=== PATIENT | female | born 1985 | race Caucasian/White ===

== ENCOUNTER → 2016-08-08 | Outpatient (CLI) | payer BC ==
[~2016-08-08] MED LIST: ETONMIS VAGRING; FEXO1TAB49 PO; IBUP-1050 PO
== END | disposition home or self-care (01) ==
LOC: C.PAPS 15:16
PROVIDERS: ATTEND Physician Assistant
DX: Z01.419 Encounter for gynecological examination (general) (routine) without abnormal findings (principal)

== ENCOUNTER → 2016-08-17 | Outpatient (CLI) | payer BC ==
--- NOTE | 2016-08-17 13:06 | MAMMOGRAPHY REPORT ---
UNILATERAL RIGHT DIGITAL DIAGNOSTIC MAMMOGRAM TOMOSYNTHESIS WITH CAD AND TARGETED RIGHT ULTRASOUND: 08/17/2016 CLINICAL HISTORY: The patient reports a new palpable right breast lump for approximately 3 months. She has not noticed any change in size of the lump over that time period. She has a history of a pa lpable left axillary lump, which was biopsied April 2015 and yielded a benign fibroadenoma. TECHNIQUE: Breast tomosynthesis in addition to standard 2D mammography was performed. Current study was also evaluated with a Computer Aided Detection (CAD) system. Right CC and MLO 2-D and tomosynt hesis images were obtained. COMPARISON: Prior left breast ultrasounds dated 04/08/2015 and 04/15/2015. BREAST COMPOSITION: The tissue of the right breast is extremely dense, which lowers the sensitivity of mammography. FINDINGS: A triangle marker cooney the site of the palpable lump in the right lower outer quadrant. No suspicious masses, calcifications, or areas of architectural distortion are noted in the right b reast mammographically. Targeted ultrasound was performed of the area of the palpable lump pointed out by the patient, in th e right breast at approximately 7:00, 5 cm from the nipple. At the site of the palpable lump there is an oval circumscribed parallel hypoechoic solid mass which measures 1.4 x 0.5 x 1.6 cm. This britt ears similar to the previously biopsied left axillary mass which yielded a benign fibroadenoma. The mass is probably benign and likely also represents a fibroadenoma. Recommend follow-up ultrasound of the right breast in 6 months to confirm stability. IMPRESSION: ACR-BI-RADS CATEGORY 3: PROBABLY BENIGN, TARGETED ULTRASOUND ACR-BI-RADS CATEGORY 3: VA OBABLY BENIGN Circumscribed hypoechoic 1.6 cm mass in the right breast at 7:00, at the site of the palpable lump p ointed out by the patient. The mass appears similar to the previously biopsied left axillary mass w hich yielded a benign fibroadenoma. The mass is probably benign and likely also represents a fibroa denoma. Recommend follow-up ultrasound of the right breast in 6 months to confirm stability. Also recommend clinical follow-up of the palpable lump, and if the lump clinically increases in size befo re the followup, the patient should return sooner for repeat ultrasound. The patient has been verbally notified of the results. Approximately 10% of breast cancers are not detected with mammography. A negative mammographic repor t should not delay biopsy if a clinically suggestive mass is present. Celia Asher M.D. ah/:08/17/2016 08:30:18 Layout Worker: Haily MCFADDEN(R)(Gina), letter sent: Follow Up Recommended 3 BI-RADS Code: ACR-BI-RADS Category 3: Probably Benign Ultrasound BI-RADS: ACR-BI-RADS Category 3: P robably Benign
== END | disposition home or self-care (01) ==
LOC: C.MAMM 08:01
PROVIDERS: ATTEND Physician Assistant
DX: N63 Unspecified lump in breast (principal)

== ENCOUNTER → 2016-09-06 | Outpatient (CLI) | payer BC | END | disposition home or self-care (01) | LOC: C.PATHSPEC 16:25 | PROVIDERS: ATTEND Obstetrics & Gynecology | DX: A63.0 Anogenital (venereal) warts (principal); R87.612 Low grade squamous intraepithelial lesion on cytologic smear of cervix (LGSIL); N85.8 Other specified noninflammatory disorders of uterus ==

== ENCOUNTER → 2016-10-26 | Outpatient (CLI) | payer BC ==
--- NOTE | 2016-10-26 16:00 | MAMMOGRAPHY REPORT ---
UNILATERAL LEFT DIGITAL DIAGNOSTIC MAMMOGRAM TOMOSYNTHESIS WITH CAD AND TARGETED LEFT ULTRASOUND: 10/01 CLINICAL HISTORY: The patient reports that the palpable left axillary lump which has been previously biopsied has been increasingly painful over the last 2 months, especially when a shirt or vest rubs a gainst the mass. She does not feel that the mass has changed in size clinically. TECHNIQUE: Breast tomosynthesis in addition to standard 2D mammography was performed. Current study was also evaluated with a Computer Aided Detection (CAD) system. Left CC and MLO 2-D and tomosynthes is images were obtained. COMPARISON: Comparison is made to exams dated: 04/15/2015 ultrasound and 04/08/2015 ultrasound - [facility]. BREAST COMPOSITION: The tissue of the left breast is extremely dense, which lowers the sensitivity o f mammography. FINDINGS: A triangle marker cooney the site of the painful palpable lump in the left axillary region. At the site of the palpable lump there is an oval circumscribed 14 mm mass with an associated biops y marker clip. This was previously biopsied and yielded a benign fibroadenoma. The remainder of the left breast demonstrates no suspicious masses, calcifications, or areas of architectural distortion. Targeted ultrasound was performed of the area of the painful palpable lump pointed out by the patient , in the left axillary region. At the site of the palpable lump there is a hypoechoic circumscribed mass which measures 11 x 7 x 10 mm in the radial and antiradial planes, with maximum dimension measur ing 1.6 cm. The mass is not significantly changed compared to the April 2015 exam when accounting for differences in measurement technique. This corresponds with the mammographic mass and was previou sly biopsied and yielded a benign fibroadenoma. IMPRESSION: ACR BI-RADS CATEGORY 2: BENIGN, TARGETED ULTRASOUND ACR BI-RADS CATEGORY 2: BENIGN Stable size and appearance of the 1.6 cm hypoechoic mass in the left axilla, which was previously bio psied and yielded a benign fibroadenoma. Given that the mass is increasingly painful, consider surgi cary consultation for possible excision. There is no mammographic or targeted sonographic evidence of malignancy. The patient has been verball y notified of the results. Note that the patient is also due for short interval follow-up of a right breast mass January 2017. Approximately 10% of breast cancers are not detected with mammography. A negative mammographic report should not delay biopsy if a clinically suggestive mass is present. Celia Asher M.D. ah/:10/26/2016 13:38:46 Slumber Room Attendant: Mary [place])(Gina), [facility] letter sent: Normal 1/2 BI-RADS Code: ACR BI-RADS Category 2: Benign Ultrasound BI-RADS: ACR BI-RADS Category 2: Benign
== END | disposition home or self-care (01) ==
LOC: C.MAMM 12:56
PROVIDERS: ATTEND Physician Assistant
DX: N63 Unspecified lump in breast (principal)

== ENCOUNTER → 2016-11-14 | Day surgery (SDC) | payer BC ==
[2016-11-09 16:23] VITALS: Ht 167.6 cm; Wt 60.5 kg
[~2016-11-14] VITALS: Ht 167.6 cm; Wt 60.5 kg
[~2016-11-14] MED LIST changes: +ATROPINE SULFATE 0.1 MG/ML 5ML SYR IV PRN; +BUPIVACAINE 0.5 % 5 MG/1 ML MPF 30ML VIAL ONE; +DEXAMETHASONE SOD INJ 4 MG/ML VIAL ONE; +EpHEDrine SULFATE INJ 50 MG/ML AMP IV PRN; +FENTANYL CITRATE INJ 50 MCG/1 ML 2 ML VIAL IV PRN; +FENTANYL CITRATE INJ 50 MCG/1 ML 2 ML VIAL ONE; +FLUMAZENIL 0.1 MG/1 ML 10 ML VIAL IV PRN; +HYDROmorphone INJ 2 MG/ML SYR/VIAL IV PRN; +HydrALAZINE HCL 20 MG/ML VIAL IV. STA; +HydrALAZINE HCL 20 MG/ML VIAL ONE; +KETOROLAC TROMETHAMINE 30 MG/ML VIAL ONE; +LABETALOL HCL IV 5 MG/ML 20ML IV PRN; +LACTATED RINGER'S 1000ML 1,000 ML IV SCH; +LIDOCAINE HCL 2% 2 ML VIAL (20MG/ML) ONE; +MEPERIDINE HCL 25 MG/ML CARP IV PRN; +MIDAZOLAM HCL 1 MG/ML 2ML VIAL ONE; +NALOXONE HCL 0.4 MG/1 ML VIAL/CARP IV PRN; +ONDANSETRON INJ 2 MG/ML 2 ML VIAL IV PRN; +ONDANSETRON INJ 2 MG/ML 2 ML VIAL ONE; +PHENYLEPHRINE 100MCG/ML 5ML SYR IV PRN; +PROPOFOL IV EMULSION 10 MG/ML 20 ML VIAL IV ONE; +SODIUM CHLORIDE 0.9% 1000ML 1,000 ML IV SCH
--- NOTE | 2016-11-14 07:03 | History & Physical Bridge - SC ---
H&P Re-Evaluation Bridge Note: I have examined the patient, reviewed the History & Physical and in the interval since the performance of the History & Physical I have noted the following changes of clinical significance: The patient has a palpable mass in the right breast that has been imaged and is a likely fibroadenoma, but would like it to be excised as well. Plan for left breast excisional biopsy and possible right breast excisional biopsy. No other changes noted
--- NOTE | 2016-11-14 07:57 | [facility] Post Operative Brief Note ---
Immediate Operative Summary Operative Date Nov 14, 2016. Pre-Operative Diagnosis Breast lump or mass Post-Operative Diagnosis same Procedure(s) Performed Left Breast Excisional Biopsy; Right Breast Excisional Biopsy Surgeon Dr Hernández Landscape Contractor Surgeon(s) Mary Shane PA-C Estimated Blood Loss 3ML Findings 2cm right breast mass excised, 1.5cm left breast mass excised, good hemostasis, likely fibroadenomas Specimens A)Right Breast Mass B)Left Breast Mass Drains None Anesthesia GETA Complication(s) None Disposition Recovery Room / PACU
--- NOTE | 2016-11-14 08:00 | Discharge Instructions-SurgCtr ---
Discharge Instructions Date of Service Nov 14, 2016. Visit Reason for Visit: Breast Lump Or Mass Discharge Discharge Diagnosis / Problem: Breast Lump Or Mass Discharge Goals Goal(s): Decrease discomfort, Improve function Activity Recommendations Activity Limitations: as noted below Lifting Limitations: no more than 10 pounds Exercise/Sports Limitations: until after follow-up appointment May Resume Sexual Activity: after follow-up appointment Shower/Bathe: tomorrow Anesthesia . Post Anesthesia Instructions: If you have had General Anesthesia or IV Sedation: * Do not drive today. * Resume driving when surgeon permits. * Do not make important decisions or sign legal documents today. * Call surgeon for: 1. Temperature elevations greater than 101 degrees F. 2. Uncontrollable pain. 3. Excessive bleeding. 4. Persistent nausea and vomiting. 5. Medication intolerance (nausea, vomiting or rash). * For nausea and vomiting use only clear liquids such as: tea, soda, bouillon until nausea subsides, then gradually increase diet as tolerated. * If you have any concerns or questions, call your surgeon's office. If physician is unavailable and it is an emergency, call 911 or go to the nearest emergency room. . Instructions / Follow-Up Instructions / Follow-Up Please follow-up with Dr. Hernández in the office in 1-2 weeks. Please call the office at [phone] to make an appointment if you do not have one already. Please call the office at [phone] with any questions or concerns. Diet Recommendations Home Diet: no limitations, resume previous diet Pending Studies Studies pending at discharge: yes List of pending studies: Pathology report. Medical Emergencies . Who to Call and When: Medical Emergencies: If at any time you feel your situation is an emergency, please call 911 immediately. . Non-Emergent Contact Non-Emergency issues call your: Primary Care Provider, Surgeon Call Non-Emergent contact if: temperature is above 101.5, your pain is not controlled, wound has increased drainage, wound has increased redness . . "Provider Documentation" section prepared by Julia Sood. . [place] Drug Monitoring Program Search Results: patient reviewed within database, no issues identified
--- NOTE | 2016-11-14 08:06 | [facility] Operative Report ---
Operative Report Operative Date Nov 14, 2016. Pre-Operative Diagnosis Breast lump or mass Post-Operative Diagnosis same Procedure(s) Performed Left Breast Excisional Biopsy; Right Breast Excisional Biopsy Surgeon Dr Hernández Pipeline Superintendent Division Surgeon(s) Mary Shane PA-C Estimated Blood Loss 3ML Findings right breast 2.0 cm excised, left breast mass 1.5cm excised, good hemostasis, likely fibroadenomas. Specimens A)Right Breast Mass B)Left Breast Mass Drains None Anesthesia GETA Complication(s) None Disposition Recovery Room / PACU Indications 31 year old female with palpable bilateral breast masses. Left breast mass with prior stereotactic biopsy, pathology consistent with fibroadenoma. Right breast mass, BIRADS 3, likely fibroadenoma. Both cause discomfort when wearing body armor, plan for left breast excisional biopsy, possible right breast excisional biopsy. The risks and benefits of the procedure were discussed, all questions answered, and the patient agreed to proceed with surgery as planned. Description of Procedure The patient was appropriately identified, consented, and taken to the operating room where she was placed in the supine position. General anesthesia was induced, SCD's were placed, and the patient's bilateral breasts were prepped and draped in the standard sterile fashion. A surgical timeout was performed and all parties were in agreement that this was the correct patient and procedure to be performed and we continued as planned. Local anesthetic was injected at incision sites. A transverse incision was made in the right breast overlying the mass with a knife and deepened through the subcutaneous tissue with electrocautery. The right breast mass was identified, circumferentially dissected, excised, and passed off the table as specimen. The incision was irrigated and hemostasis achieved. The skin was closed with interrupted 3-0 vicryl deep dermal suture followed by 4-0 monocryl subcuticular suture. Dermabond was placed over the incision. A transverse incision was made in the left breast overlying the mass in the axilla with a knife and deepened through the subcutaneous tissue with electrocautery. The left breast mass was identified, circumferentially dissected, excised, and passed off the table as specimen. The incision was irrigated and hemostasis achieved. The skin was closed with interrupted 3-0 vicryl deep dermal suture followed by 4-0 monocryl subcuticular suture. Dermabond was placed over the incision. Anesthesia was ceased and the patient was extubated in the operating room. All sponge, needle and instrument counts were correct. The patient was transferred to the PACU where she recovered without apparent incident. I attest to the content of the Intraoperative Record and any orders documented therein. Any exceptions are noted below.
[2016-11-14 09:01] VITALS: TEMP 36.6
--- NOTE | 2016-11-14 09:19 | Anesthesia Progress Nt - [facility] ---
Anesthesia Post Op Note Date & Time Nov 14, 2016 at 09:19 Vital Signs Pain Intensity: 0 Vital Signs Past 12 Hours Date Time Temp Pulse Resp B/P (MAP) Pulse Ox O2 Delivery O2 Flow Rate FiO2 11/14/16 09:01 36.6 75 16 143/89 (107) 99 Room Air 11/14/16 08:53 37.1 62 16 145/91 100 Room Air 11/14/16 08:51 145/91 11/14/16 08:51 145/91 11/14/16 08:47 65 20 11/14/16 08:47 66 20 100 11/14/16 08:47 65 20 11/14/16 08:47 66 20 100 11/14/16 08:46 148/111 11/14/16 08:46 148/111 11/14/16 08:42 58 13 100 11/14/16 08:42 55 13 11/14/16 08:42 58 13 100 11/14/16 08:42 55 13 11/14/16 08:41 153/97 11/14/16 08:41 153/97 11/14/16 08:40 150/100 11/14/16 08:40 150/100 11/14/16 08:38 154/98 11/14/16 08:38 154/98 11/14/16 08:37 51 27 100 11/14/16 08:37 51 27 11/14/16 08:37 51 27 11/14/16 08:37 51 27 100 11/14/16 08:36 149/103 11/14/16 08:36 149/103 11/14/16 08:32 50 13 11/14/16 08:32 50 13 11/14/16 08:32 50 13 100 11/14/16 08:32 50 13 100 11/14/16 08:31 156/95 11/14/16 08:31 156/95 11/14/16 08:29 149/101 11/14/16 08:29 149/101 11/14/16 08:27 49 16 100 11/14/16 08:27 50 16 11/14/16 08:27 50 16 11/14/16 08:27 49 16 100 11/14/16 08:26 156/101 11/14/16 08:26 156/101 11/14/16 08:22 55 12 100 11/14/16 08:22 54 12 11/14/16 08:22 55 12 100 11/14/16 08:22 54 12 11/14/16 08:21 150/99 11/14/16 08:21 150/99 11/14/16 08:20 150/102 11/14/16 08:20 150/102 11/14/16 08:17 52 7 11/14/16 08:17 52 7 11/14/16 08:17 50 7 100 11/14/16 08:17 50 7 100 11/14/16 08:16 158/104 11/14/16 08:16 158/104 11/14/16 08:14 149/101 11/14/16 08:14 149/101 11/14/16 08:12 66 21 11/14/16 08:12 66 21 11/14/16 08:12 66 21 99 11/14/16 08:12 66 21 99 11/14/16 08:11 163/106 11/14/16 08:11 163/106 11/14/16 08:07 58 18 100 11/14/16 08:07 57 18 11/14/16 08:07 57 18 11/14/16 08:07 58 18 100 11/14/16 08:06 138/102 11/14/16 08:06 138/102 11/14/16 08:02 58 15 100 11/14/16 08:02 58 15 11/14/16 08:02 58 15 100 11/14/16 08:02 58 15 11/14/16 08:01 147/99 11/14/16 07:59 57 15 11/14/16 07:59 58 15 100 11/14/16 07:56 136/90 11/14/16 07:54 36.5 53 16 143/89 100 Mask 11/14/16 06:21 36.6 69 18 151/104 (120) 100 Room Air Notes Mental Status: alert / awake / arousable, participated in evaluation Pt Amnestic to Procedure: Yes Nausea / Vomiting: adequately controlled Pain: adequately controlled Airway Patency, RR, SpO2: stable & adequate BP & HR: stable & adequate Hydration State: stable & adequate Anesthetic Complications: no major complications apparent
[2016-11-14 09:21] VITALS: PULSE 73; O2SAT 100
[2016-11-14 09:24] VITALS: BP 143/98
== END | disposition home or self-care (01) ==
LOC: X.SURG 06:04
PROVIDERS: ATTEND Surgery
DX: D24.1 Benign neoplasm of right breast (principal); D24.2 Benign neoplasm of left breast

== ENCOUNTER → 2017-02-08 | Outpatient (CLI) | payer BC ==
[~2017-02-08] MED LIST changes: -ATROPINE SULFATE 0.1 MG/ML 5ML SYR IV PRN; -BUPIVACAINE 0.5 % 5 MG/1 ML MPF 30ML VIAL ONE; -DEXAMETHASONE SOD INJ 4 MG/ML VIAL ONE; -EpHEDrine SULFATE INJ 50 MG/ML AMP IV PRN; -FENTANYL CITRATE INJ 50 MCG/1 ML 2 ML VIAL IV PRN; -FENTANYL CITRATE INJ 50 MCG/1 ML 2 ML VIAL ONE; -FLUMAZENIL 0.1 MG/1 ML 10 ML VIAL IV PRN; -HYDROmorphone INJ 2 MG/ML SYR/VIAL IV PRN; -HydrALAZINE HCL 20 MG/ML VIAL IV. STA; -HydrALAZINE HCL 20 MG/ML VIAL ONE; -KETOROLAC TROMETHAMINE 30 MG/ML VIAL ONE; -LABETALOL HCL IV 5 MG/ML 20ML IV PRN; -LACTATED RINGER'S 1000ML 1,000 ML IV SCH; -LIDOCAINE HCL 2% 2 ML VIAL (20MG/ML) ONE; -MEPERIDINE HCL 25 MG/ML CARP IV PRN; -MIDAZOLAM HCL 1 MG/ML 2ML VIAL ONE; -NALOXONE HCL 0.4 MG/1 ML VIAL/CARP IV PRN; -ONDANSETRON INJ 2 MG/ML 2 ML VIAL IV PRN; -ONDANSETRON INJ 2 MG/ML 2 ML VIAL ONE; -PHENYLEPHRINE 100MCG/ML 5ML SYR IV PRN; -PROPOFOL IV EMULSION 10 MG/ML 20 ML VIAL IV ONE; -SODIUM CHLORIDE 0.9% 1000ML 1,000 ML IV SCH
== END | disposition home or self-care (01) ==
LOC: C.PAPS 11:47
PROVIDERS: ATTEND Physician Assistant
DX: N87.0 Mild cervical dysplasia (principal)

== ENCOUNTER 2017-06-21 10:21 | Inpatient (IN) | payer BC ==
[2017-05-28 09:20] VITALS: BMI 21.0
--- NOTE | 2017-05-28 09:48 | PAT Medication Instructions ---
Service Date May 28, 2017. Current Home Medication List Etonogestrel/Ethinyl Estradiol (Nuvaring), 1 EA VAGRING MONTHLY Fexofenadine Hcl (Vivian Allergy), 1 TAB PO QPM PRN for Seasonal Allergies Medication Instructions For Your Scheduled Surgery -Coninue as directed: Etonogestrel/Ethinyl Estradiol (Nuvaring), 1 EA VAGRING MONTHLY - Hold the following medications the morning of surgery: Fexofenadine Hcl (Vivian Allergy), 1 TAB PO QPM PRN for Seasonal Allergies - Take the following medications as scheduled the night before surgery: Fexofenadine Hcl (Vivian Allergy), 1 TAB PO QPM PRN for Seasonal Allergies (if needed) If you have any questions please call us at [phone] or [phone] or [phone]
[2017-05-28 10:36] LABS: BASO % 0.5 %; BASO ABS # 0.03 K/uL (0-0.2); EOS % 2.3 %; EOS ABS # 0.14 K/uL (0-0.5); HEMATOCRIT 37.8 % (37-47); HEMOGLOBIN 13.4 g/dL (12.0-16.0); IG# 0.02 K/uL (0.00-0.02); LYMPH % 16.2 %; LYMPH ABS # 0.97 K/uL (1.2-3.4); MEAN CELL VOLUME 86.3 fL (80-100); MEAN CORPUSCULAR HEMOGLOBIN 30.6 pg (25-34); MEAN CORPUSCULAR HGB CONC 35.4 g/dl (32-36); MEAN PLATELET VOLUME 10.1 fL (7.4-10.4); MONO % 7.2 %; MONO ABS # 0.43 K/uL (0.11-0.59); NEUT % 73.5 %; NEUT ABS # 4.38 K/uL (1.4-6.5); PLATELET COUNT 328 K/uL (130-400); RED CELL DISTRIBUTION WIDTH CV 11.9 % (11.5-14.5); RED CELL DISTRIBUTION WIDTH SD 37.5 fL (36.4-46.3); WHITE BLOOD COUNT 5.97 K/uL (4.8-10.8)
--- NOTE | 2017-05-28 11:19 | DIAGNOSTIC IMAGING REPORT ---
CHEST 2 VIEWS ROUTINE CLINICAL HISTORY: Preoperative evaluation. COMPARISON STUDY: No previous studies for comparison. FINDINGS: Lung volumes are normal. There is no pneumothorax or pleural effusion. Cardiac size is normal. Mediastinal contours are normal. There is no evidence for pulmonary edema. IMPRESSION: No acute cardiopulmonary findings. Electronically signed by: Calvin Hernandez M.D. 05/28/2017 11:17 AM Dictated Date/Time: 05/28/2017 11:17 AM
[2017-05-28 12:23] LABS: CALCIUM 8.7 mg/dl (8.5-10.1); CREATININE 0.8 mg/dl (0.60-1.20); POTASSIUM 3.8 mmol/L (3.5-5.1)
[2017-06-21] VITALS (8 sets, daily range): BP systolic 120–150; BP diastolic 75–104; PULSE 63–100; TEMP 36–36.8; O2SAT 99–100; Ht 167.6 cm; Wt 60.3 kg
[~2017-06-21] VITALS: Ht 167.6 cm; Wt 60.3 kg
[~2017-06-21 10:21] MED LIST changes: +ATROPINE SULFATE 0.1 MG/ML 5ML SYR IV PRN; +CLINDAMYCIN 600 MG/54 ML D5W IV SCH; +EpHEDrine SULFATE INJ 50 MG/ML AMP IV PRN; +FENTANYL CITRATE INJ 50 MCG/1 ML 2 ML VIAL IV PRN; +HYDROmorphone INJ 1 MG/ML SYR IV PRN; -IBUP-1050 PO; +LACTATED RINGER'S 1000ML 1,000 ML IV SCH; +ONDANSETRON INJ 2 MG/ML 2 ML VIAL IV PRN; +PHENYLEPHRINE 100MCG/ML 5ML SYR IV PRN; +PROMETHAZINE HCL INJ 12.5 MG in SODIUM CHLORIDE 0.9% 50ML 50 ML IV PRN
--- NOTE | 2017-06-21 13:12 | History & Physical Bridge Note ---
H&P Re-Evaluation Bridge Note: I have examined the patient, reviewed the History & Physical and in the interval since the performance of the History & Physical I have noted the following changes of clinical significance: No changes noted
--- NOTE | 2017-06-21 13:13 | History and Physical ---
History & Physical Date Jun 21, 2017. Chief Complaint Back and leg pain History of Present Illness The patient is a 32 year old female with complaints of back and leg pain Additional History Hepatic Disease: No Endocrine Disorder: No Kidney Disease: No Hypertension: No Heart Disease: No Bleeding Tendencies: No Infectious Diseases: No Allergies Coded Allergies: Penicillins (Verified Allergy, Intermediate, HIVES, 06/21/17) Home Medications Scheduled PRN Fexofenadine Hcl (Vivian Allergy), 1 TAB PO QPM PRN for Seasonal Allergies Physical Examination Skin: warm/dry, no rash Eyes: normal inspection, EOMI, sclerae normal ENT: normal ENT inspection, pharynx normal Head: normocephalic, atraumatic Neck: supple, no adenopathy, trachea midline Respiratory/Chest: lungs clear, normal breath sounds, no respiratory distress Cardiovascular: regular rate, rhythm, no edema, no murmur Abdomen / GI: normal bowel sounds, non tender Back: normal inspection Extremities: normal inspection, normal range of motion Neurologic/Psych: no motor/sensory deficits, alert, normal reflexes, oriented x 3 Diagnosis Lumbar spinal stenosis Plan of Treatment L4-S1 decompression and fusion
[2017-06-21] MEDS ORDERED: MIDAZOLAM HCL 1 MG/ML 2ML VIAL ONE (13:14)
[2017-06-21] MEDS ORDERED: FENTANYL CITRATE INJ 50 MCG/1 ML 2 ML VIAL ONE ×3 (13:14→16:01)
[2017-06-21] MEDS ORDERED: BACITRACIN 50000 UNIT VIAL ONE (13:37)
[2017-06-21] MEDS ORDERED: BUPIVACAINE/EPINEPHRINE 0.5% MPF 1:200,000 30 ML VIAL ONE (13:37)
[2017-06-21] MEDS ORDERED: HYDROmorphone INJ 2 MG/ML SYR/VIAL ONE (14:01)
[2017-06-21] MEDS ORDERED: ROCURONIUM BROMIDE 10 MG/ML 5 ML VIAL IV ONE (14:27)
[2017-06-21] MEDS ORDERED: ONDANSETRON INJ 2 MG/ML 2 ML VIAL ONE (14:27)
[2017-06-21] MEDS ORDERED: NEOSTIGMINE METHYLSULFATE 1 MG/ML 10ML VIAL ONE (14:27)
[2017-06-21] MEDS ORDERED: DEXAMETHASONE SOD INJ 4 MG/ML VIAL ONE (14:27)
[2017-06-21] MEDS ORDERED: GLYCOPYRROLATE INJ 0.2 MG/ML VIAL ONE (14:27)
[2017-06-21] MEDS ORDERED: PROPOFOL IV EMULSION 10 MG/ML 20 ML VIAL IV ONE (14:27)
[2017-06-21] MEDS ORDERED: ESMOLOL HCL 10 MG/ML 10 ML VIAL ONE (14:27)
[2017-06-21] MEDS ORDERED: LIDOCAINE HCL 2% 2 ML VIAL (20MG/ML) ONE (14:27)
[2017-06-21] MEDS ORDERED: PHENYLEPHRINE 100MCG/ML 5ML SYR ONE (14:29)
[2017-06-21] MEDS ORDERED: EpHEDrine SULFATE 50MG/5ML SYR ONE (14:30)
[2017-06-21] MEDS ORDERED: SODIUM CHLORIDE 0.9% 1000ML 1,000 ML IV SCH (15:40)
--- NOTE | 2017-06-21 15:40 | [facility] Operative Report ---
Operative Report Operative Date Jun 21, 2017. Pre-Operative Diagnosis Lumbar Spinal Stenosis Post-Operative Diagnosis Lumbar Spinal Stenosis Procedure(s) Performed 1. Lumbar decompression medial facetectomies foraminotomies L4-5 L5-S1. #2 posterior spinal fusion L4-5 L5-S1. #3 placement posterior segmental transportation L4-5 L5-S1. #4 interbody fusion L5-S1. #5 placed a peek cage 12 x 22 mm at L5-S1. #6 placement locally harvested Hooper's allograft in the posterior lateral gutters. #7 placement InFUSE collagen sponge had mass graft the posterior gutters and ostial amp in the interbody space. Surgeon Dr. Devlin Buyer Planner Surgeon(s) Vivien Figueroa PA-C Estimated Blood Loss 125 ml Findings Severe spinal stenosis Specimens none per surgeon Description of Procedure Patient was met with preoperatively case discussed all questions addressed. After informed consent obtained patient was taken to the operative suite underwent intubation and placed in the prone position on the Sonny table on top of the Al frame. All bony prominences were well-padded the eyes were inspected to ensure no external pressure placed upon them. This point the lumbar spine was prepped and draped in the normal sterile fashion. Sharp dissection the assistance of a Bovie cautery was performed down to and exposing the lamina of L4 and L5 bilaterally. From a caudocephalad fashion laminectomy of L5 and L4 was performed addressing lateral recess disease. Pedicle screws are then placed in L4 L5-S1 levels bilaterally with the assistance of fluoroscopy in the properly sized eric placed. Through a trans- foraminal approach on the right a complete discectomy of L5-S1 was performed endplates carotid to subcortical bleeding bone and a 12 x 22 mm peek cage. Straight bone graft tapped in position. The rods were then compressed locked in final position bilaterally. Transverse processes of L4-L5 and sacral ala burred to subcortical bleeding bone. Infuse collagen sponge mesh graft and locally harvested morselized autograft Was placed in the posterior lateral gutters. A 15 round JOSÉ drain inserted. Incision was then closed with 1 Vicryl fascia 2-0 Vicryl subcutaneous and 4-0 Monocryl for fashion closure Steri-Strips sterile dressings placed. Patient will continue PACU stable condition. Please note Alee is feeling t was present throughout the entire procedure involved in patient positioning complex portions of the surgery and fashion closure. I attest to the content of the Intraoperative Record and any orders documented therein. Any exceptions are noted below.
--- NOTE | 2017-06-21 15:44 | DIAGNOSTIC IMAGING REPORT ---
LUMBAR SPINE, INTRAOPERATIVE FLUOROSCOPY HISTORY: L4-S1 decompression and fusion. FLUOROSCOPY TIME: 20 seconds. FINDINGS: Intraoperative fluoroscopy was provided for the lumbar spine. 2 fluoroscopic spot images were obtained. Posterior decompression and fusion from L4 through S1 with pedicle screws and rods. The hardware appears intact. IMPRESSION: Fluoroscopy provided for a L4 S1 posterior decompression and fusion. Electronically signed by: Porter Johns M.D. 06/21/2017 3:43 PM Dictated Date/Time: 06/21/2017 3:42 PM
[2017-06-21] MEDS ORDERED: BISACODYL 10 MG SUPP PR PRN (15:45)
[2017-06-21] MEDS ORDERED: MAGNESIUM HYDROXIDE SUSP 30 ML UDC PO PRN (15:45)
[2017-06-21] MEDS ORDERED: DO NOT ADMINISTER PNEUMOCOCCAL VACCINE PRN (15:45)
[2017-06-21] MEDS ORDERED: hydrOXYzine HCL 25 MG TAB PO PRN (15:45)
[2017-06-21] MEDS ORDERED: SOD PHOSPHATE/SOD BIPHOSPHATE ENEMA 132 ML BTL PR PRN (15:45)
[2017-06-21] MEDS ORDERED: LORAZEPAM INJ 0.5 MG in SYRINGE 0 ML IV PRN (15:45)
[2017-06-21] MEDS ORDERED: DO NOT ADMINISTER FLU VACCINE PRN (15:45)
[2017-06-21] MEDS ORDERED: LORAZEPAM 0.5 MG TAB PO PRN (15:45)
[2017-06-21] MEDS ORDERED: NALOXONE HCL 0.4 MG/1 ML VIAL/CARP IV PRN ×2 (15:45)
[2017-06-21] MEDS ORDERED: ACETAMINOPHEN 500 MG TAB PO PRN (15:45)
[2017-06-21] MEDS ORDERED: ACETAMINOPHEN IV 100 ML IV PRN (15:45)
[2017-06-21] MEDS ORDERED: FEXOFENADINE HCL 180 MG TAB PO PRN (15:45)
[2017-06-21] MEDS ORDERED: PROMETHAZINE HCL INJ 12.5 MG in SODIUM CHLORIDE 0.9% 50ML 50 ML IV PRN (15:45)
[2017-06-21] MEDS ORDERED: HYDROmorphone HCL 0.5MG/ML 50 ML CASSETTE IV PRN (15:45)
[2017-06-21] MEDS ORDERED: HYDROmorphone HCL 0.5MG/ML 50 ML CASSETTE ONE (15:54)
[2017-06-21] MEDS ORDERED: HYDROmorphone INJ 1 MG/ML SYR ONE ×3 (16:02→16:48)
[2017-06-21] MEDS ORDERED: NURSING VERBAL MED ORDER ONE (16:30)
--- NOTE | 2017-06-21 17:18 | Anesthesiology Progress Note ---
Anesthesia Post Op Note Date & Time Jun 21, 2017 at 17:17 Vital Signs Pain Intensity: 6 Vital Signs Past 12 Hours Date Time Temp Pulse Resp B/P (MAP) Pulse Ox O2 Delivery O2 Flow Rate FiO2 06/21/17 17:14 62 16 06/21/17 17:14 61 16 100 06/21/17 17:11 125/71 06/21/17 17:09 61 16 100 06/21/17 17:09 61 16 06/21/17 17:06 123/79 06/21/17 17:06 36.5 100 Nasal Cannula 4 06/21/17 17:04 64 16 06/21/17 17:04 64 16 100 06/21/17 17:03 73 12 100 06/21/17 17:03 74 12 06/21/17 17:01 115/77 06/21/17 16:58 75 17 100 06/21/17 16:58 74 17 06/21/17 16:56 113/80 06/21/17 16:53 63 19 06/21/17 16:53 62 19 100 06/21/17 16:51 118/75 06/21/17 16:48 61 16 100 06/21/17 16:48 61 16 06/21/17 16:46 114/76 06/21/17 16:43 63 16 100 06/21/17 16:43 63 16 06/21/17 16:41 115/76 06/21/17 16:38 63 15 100 06/21/17 16:38 63 15 06/21/17 16:37 64 16 06/21/17 16:37 64 16 100 06/21/17 16:36 119/83 06/21/17 16:32 62 16 06/21/17 16:32 61 16 100 06/21/17 16:31 131/89 06/21/17 16:27 65 16 100 06/21/17 16:27 65 16 06/21/17 16:26 129/85 06/21/17 16:22 63 15 100 06/21/17 16:22 63 15 06/21/17 16:21 132/84 06/21/17 16:17 63 15 100 06/21/17 16:17 63 15 06/21/17 16:16 65 15 06/21/17 16:16 65 15 138/89 100 06/21/17 16:11 65 15 06/21/17 16:11 64 15 148/89 100 06/21/17 16:06 82 19 140/101 100 06/21/17 16:06 82 19 06/21/17 16:01 79 17 132/88 100 06/21/17 16:01 79 17 06/21/17 15:57 150/77 06/21/17 15:56 96 17 06/21/17 15:56 96 17 100 06/21/17 15:53 144/97 06/21/17 15:51 36.8 96 14 144/97 100 Oxymask 10 06/21/17 10:30 36.8 74 20 129/104 99 Room Air 150/102 Notes Mental Status: alert / awake / arousable, participated in evaluation Pt Amnestic to Procedure: Yes Nausea / Vomiting: adequately controlled Pain: adequately controlled Airway Patency, RR, SpO2: stable & adequate BP & HR: stable & adequate Hydration State: stable & adequate Anesthetic Complications: no major complications apparent
[2017-06-21] MEDS: METOCLOPRAMIDE HCL INJ 5 MG/ML 2 ML VIAL IV PRN (17:48)
[2017-06-21] MEDS: LACTATED RINGER'S 1000ML 1,000 ML IV SCH ×2 (18:34→22:08)
[2017-06-21] MEDS: DOCUSATE SODIUM/SENNA 50/8.6MG TAB PO SCH (21:00)
[2017-06-21] MEDS: ONDANSETRON INJ 2 MG/ML 2 ML VIAL IV PRN (21:05)
[2017-06-21] MEDS: CLINDAMYCIN IV 600 MG in DEXTROSE 5% 50ML 50 ML IV SCH (22:08)
[2017-06-22] VITALS (7 sets, daily range): BP systolic 108–144; BP diastolic 61–86; PULSE 62–91; TEMP 36.6–37.1; O2SAT 96–100
[2017-06-22] MEDS: LACTATED RINGER'S 1000ML 1,000 ML IV SCH (05:00)
[2017-06-22] MEDS: CLINDAMYCIN IV 600 MG in DEXTROSE 5% 50ML 50 ML IV SCH (05:34)
[2017-06-22] MEDS ORDERED: HYDROmorphone INJ 0.5 MG/0.5 ML SYR IV PRN (06:00)
[2017-06-22] MEDS ORDERED: DC PCA SCH (06:00)
[2017-06-22] MEDS ORDERED: HYDROmorphone INJ 1 MG/ML SYR IV PRN (06:00)
[2017-06-22] MEDS ORDERED: NURSING VERBAL MED ORDER ONE (06:30)
[2017-06-22 07:14] LABS: BASO % 0.1 %; BASO ABS # 0.01 K/uL (0-0.2); EOS % 0.1 %; EOS ABS # 0.01 K/uL (0-0.5); HEMATOCRIT 34.2 % (37-47); HEMOGLOBIN 11.9 g/dL (12.0-16.0); IG# 0.13 K/uL (0.00-0.02); LYMPH % 6.9 %; LYMPH ABS # 1.03 K/uL (1.2-3.4); MEAN CELL VOLUME 85.7 fL (80-100); MEAN CORPUSCULAR HEMOGLOBIN 29.8 pg (25-34); MEAN CORPUSCULAR HGB CONC 34.8 g/dl (32-36); MEAN PLATELET VOLUME 9.7 fL (7.4-10.4); MONO % 8.3 %; MONO ABS # 1.24 K/uL (0.11-0.59); NEUT % 83.7 %; PLATELET COUNT 330 K/uL (130-400); RED CELL DISTRIBUTION WIDTH CV 11.9 % (11.5-14.5); RED CELL DISTRIBUTION WIDTH SD 37.1 fL (36.4-46.3); WHITE BLOOD COUNT 15.02 K/uL (4.8-10.8)
[2017-06-22 07:45] LABS: CALCIUM 8.5 mg/dl (8.5-10.1); CREATININE 0.66 mg/dl (0.60-1.20); POTASSIUM 3.6 mmol/L (3.5-5.1)
[2017-06-22] MEDS: ONDANSETRON INJ 2 MG/ML 2 ML VIAL IV PRN (07:55)
[2017-06-22] MEDS: OXYCODONE HCL IR 5 MG TAB (IMMEDIATE RELEASE) PO PRN ×3 (07:55→18:32)
[2017-06-22] MEDS: METOCLOPRAMIDE HCL INJ 5 MG/ML 2 ML VIAL IV PRN (09:22)
[2017-06-22] MEDS ORDERED: KETOROLAC TROMETHAMINE 30 MG/ML VIAL IV STA (10:49)
[2017-06-22] MEDS ORDERED: RXC5 PO (11:11)
--- NOTE | 2017-06-22 11:11 | Discharge Instructions ---
Discharge Instructions Date of Service Jun 22, 2017. Admission Reason for Admission: Lumbar Spinal Stenosis Discharge Discharge Diagnosis / Problem: lumbar stenosis Discharge Goals Goal(s): Improve function Activity Recommendations Activity Limitations: per Instructions/Follow-up section . Instructions / Follow-Up Instructions / Follow-Up ACTIVITY RECOMMENDATIONS: SELF CARE INSTRUCTIONS AFTER THORACIC/LUMBAR FUSIONS 1. You may walk to your tolerance. It is good exercise for your legs and back. Expect some back and intermittent leg aches and pains. 2. You may perform "counter-top" level activities (make a sandwich, douglas with a project, etc.). 3. No bending or lifting of more than 10 pounds or back twisting of any nature (roll like a log when turning in bed). 4. You may ride in a car for 20-30 minutes at a time. No driving until after your first visit with your doctor. 5. Frequent changes of position and restricting sitting to 30 minutes at a time will help limit the amount of back spasms and stiffness you may experience. 6. You may discontinue the use of ambulatory aids (cane, crutches, etc.) once your strength and confidence allow. 7. You may chief nursing executive the shower and let water strike your incision when you arrive home at least once daily. Do not take a tub bath, sit in a hot tub or go into a swimming pool until after your first recheck in the office. SPECIAL CARE INSTRUCTIONS: VERY IMPORTANT TO READ AND REVIEW A. Your surgical incision has been closed with a cosmetic suture under the skin that will dissolve in about 6 weeks. In 14 days, you can use a pair of clean scissors and cut the suture that is left outside of the skin at the ends of your incision. 1. The small skin tapes can be removed 7 days after surgery if they have not fallen off by that point. 2. You may keep the wound open to air as much as possible to promote healing after post-op day number 5 unless told otherwise by your doctor. 3. If you think the wound looks like it is becoming infected (redness or worsening drainage) and/or you are experiencing fever, chill or worsening back pain and muscle spasms, contact the office so that we may evaluate you as soon as possible. B. Complications are uncommon, but please contact us if you have any signs or symptoms of: 1. wound infection (fever higher than 102.5 degrees F, redness, separation of wound, drainage, or increasing pain from the incision) 2. blood clots in legs (pain, swelling, redness and warmth in legs) 3. urinary tract infection (fever higher than 102.5 degrees F, burning upon urination or increased frequency of urination) 4. nerve problems (inability to walk on your toes or heels, numbness, loss of bowel or bladder control) 5. any other symptoms that concern you C. Please call the office at if you have any concerns or questions about your operation or recovery. D. No smoking! Smoking drastically decreases the chance of a solid fusion. E. Do not take any anti-inflammatory medications (Indocin, Advil, Motrin, Aspirin, Naprosyn, etc.) as these may inhibit the chance of a solid fusion. Tylenol is okay to take for pain. MANAGING PAIN AFTER SPINAL SURGERY 1. Narcotic medication is intended for short-term use and will be provided for surgical pain. Surgical pain usually lasts for a period of 4-6 weeks. Narcotic medication includes Percocet, Vicodin, Darvocet, Tylenol #3 or Lortab. 2. Longer-term pain is more appropriately treated with non-narcotic medication such as Tylenol ES. 3. Muscle spasm is not appropriately treated with narcotics. Muscle relaxers such as Soma, Flexeril or Skelaxin can be used along with Tylenol ES. 4. Remember that we all live with some "aches and pains". This is not unusual or uncommon after an injury or as we get older. a. Back pain is expected and may include muscle spasms for 4 to 6 weeks after surgery. The pain should gradually improve. If the pain worsens for no apparent reason, please contact the office. b. Intermittent leg pain may also be experienced and should not be concerned about unless it worsens for no apparent reason. If so, please contact the office. 5. We will provide appropriate medication within the normal guidelines of their prescribed use. We will also be very cautious and aware of potential abuse and extended duration of patients' medication needs. a. Pain medications are for your comfort and to assist with sleep and rest so that the tissue can heal. They are not provided in order to return to normal activity and should not be used through the day. To do so or worsening pain at night can result from ongoing tissue damage and development of tolerance to the prescribed medicine. 6. Please allow 2-3 days to process refills. Prescriptions will not be mailed but must be picked up at the office. FOLLOW UP VISIT: Keep your scheduled follow-up appointment. Any questions, please call the office at . Current Hospital Diet Patient's current hospital diet: Regular Diet Discharge Diet Recommended Diet: Regular Diet Procedures Procedures Performed: 1. Lumbar decompression medial facetectomies foraminotomies L4-5 L5-S1. #2 posterior spinal fusion L4-5 L5-S1. #3 placement posterior segmental transportation L4-5 L5-S1. #4 interbody fusion L5-S1. #5 placed a peek cage 12 x 22 mm at L5-S1. #6 placement locally harvested Hooper's allograft in the posterior lateral gutters. #7 placement InFUSE collagen sponge had mass graft the posterior gutters and ostial amp in the interbody space. Pending Studies Studies pending at discharge: no Medical Emergencies . Who to Call and When: Medical Emergencies: If at any time you feel your situation is an emergency, please call 911 immediately. . Non-Emergent Contact Non-Emergency issues call your: Primary Care Provider . "Provider Documentation" section prepared by Fitz Devlin. .
--- NOTE | 2017-06-22 11:30 | Progress Note ---
Progress Note Date of Service Jun 22, 2017. Progress Note Patient's back pain is controlled. No leg pain. Vital signs are stable. On exam she is good strength testing appears comfortable. Assessment status post lumbar decompression fusion per plan at this time will continue physical therapy advance her bowel regiment anticipate discharge home this weekend.
[2017-06-22] MEDS: KETOROLAC TROMETHAMINE 30 MG/ML VIAL IV PRN ×2 (16:10→22:01)
[2017-06-22] MEDS: DOCUSATE SODIUM/SENNA 50/8.6MG TAB PO SCH (20:31)
[2017-06-23] MEDS: OXYCODONE HCL IR 5 MG TAB (IMMEDIATE RELEASE) PO PRN ×2 (00:30→08:33)
[2017-06-23] MEDS: KETOROLAC TROMETHAMINE 30 MG/ML VIAL IV PRN ×2 (05:48→11:33)
[2017-06-23] MEDS: POLYETHYLENE (MIRALAX) 17 GM PACK PO SCH ×2 (05:49→13:09)
[2017-06-23 07:47] VITALS: BP 105/70; PULSE 79; TEMP 36.8; O2SAT 98
[2017-06-23 09:40] VITALS: BP 105/70; PULSE 79; TEMP 36.8; O2SAT 98
--- NOTE | 2017-06-23 10:12 | Discharge Summary ---
Orthopedic Discharge Summary Admission Date/Reason Jun 21, 2017 at 13:20 Lumbar Spinal Stenosis. Discharge Date/Disposition Jun 23, 2017 Home Diagnosis Principal Diagnosis: Lumbar spinal stenosis Admission Physical Exam As per Admitting History & Physical. Hospital Course Patient underwent lumbar decompression fusion tolerated this well was taken to the orthopedic floor postoperatively. Postop day #1 she was up and amatory progressed appropriately through postop day #2. JOSÉ drain decreased appropriately. Subsequently discharged home. Discharge orders and instructions found on the chart for further review. Discharge Instructions Please refer to the electronic Patient Visit Report (Discharge Instructions) for additional information.
[2017-06-23 11:34] VITALS: TEMP 37.1
== END 2017-06-23 14:25 | disposition home or self-care (01) | DRG 455 ==
LOC: C.ACU 10:21 → C.3E 13:20 → ENRESERV 16:58
PROVIDERS: ADMIT Orthopaedic Surgery Orthopaedic Surgery of the Spine; ATTEND Orthopaedic Surgery Orthopaedic Surgery of the Spine
PROC: 0ST40ZZ Resection of Lumbosacral Disc, Open Approach (ICD-10-PCS; principal; 2017-06-21 12:15)
PROC: 0SG0071 Fusion of Lumbar Vertebral Joint with Autologous Tissue Substitute, Posterior Approach, Posterior Column, Open Approach (ICD-10-PCS; principal; 2017-06-21 12:15)
PROC: 0SG3071 Fusion of Lumbosacral Joint with Autologous Tissue Substitute, Posterior Approach, Posterior Column, Open Approach (ICD-10-PCS; principal; 2017-06-21 12:15)
PROC: 0SG30AJ Fusion of Lumbosacral Joint with Interbody Fusion Device, Posterior Approach, Anterior Column, Open Approach (ICD-10-PCS; principal; 2017-06-21 12:15)
DX: M48.061 Spinal stenosis, lumbar region without neurogenic claudication (principal); Z88.0 Allergy status to penicillin